=== PATIENT | male | born 1955 | race Caucasian/White ===

== ENCOUNTER 2018-12-21 11:15 | Emergency (ER) | payer BC ==
[~2018-12-21] VITALS: Ht 167.6 cm; Wt 75.0 kg
[2018-12-21 11:38] VITALS: Ht 167.6 cm; Wt 75.0 kg
[2018-12-21] MEDS ORDERED: ATOR40TA68 PO (12:10)
[2018-12-21] MEDS ORDERED: ASPI81TA52 PO (12:10)
[2018-12-21] MEDS ORDERED: OMEG-135 PO (12:10)
[2018-12-21] MEDS ORDERED: CARV25TA79 PO (12:10)
[2018-12-21] MEDS ORDERED: LOSA50TA14 PO ×2 (12:11)
[2018-12-21] MEDS ORDERED: ISOS60TA PO (12:12)
[2018-12-21] MEDS ORDERED: LATA2.5D2 BOTH EYES (12:12)
[2018-12-21] MEDS ORDERED: PANT40TA3 PO (12:13)
[2018-12-21] MEDS ORDERED: METF500T24 PO (12:13)
[2018-12-21] MEDS ORDERED: NITR0.4T39 SL (12:13)
[2018-12-21] MEDS ORDERED: ATRO INHALATION (12:13)
--- NOTE | 2018-12-21 12:17 | ERD ---
ER Documentation Chief Complaint Chief Complaint NON-RADIATING CHEST PAIN. UNPROVOKED. HPI 63-year-old male presents to the emergency department complaining of chest pain. Patient states he was at [facility] over the last 24 hours where he had multiple troponins performed to rule out AR. These were by report negative. He was then discharged and went to [facility]. He had an episode of nonspecific chest discomfort while at [facility]. The pain was nonspecific and in the center part of his chest was not associated with any other symptoms. He took a nitroglycerin which helped the pain get better, but that he then felt lightheaded and passed out briefly. The paramedics were then called. I have reviewed the senior integration developer pre-hospital care. Pre-hospital vital signs were reviewed. Pre-hospital diagnostic tests were reviewed. Upon arrival, patient has no chest pain or shortness of breath, no lightheadedness and feels fine. ROS All systems reviewed and are negative except as per history of present illness. Medications Home Meds Reported Medications Pantoprazole* (Protonix*) 40 Mg Tablet.dr, 40 MG PO DAILY, TAB 12/21/18 Nitroglycerin* (Nitrostat*) 0.4 Mg Tab.subl, 0.4 MG SL Q5MIN PRN for CHEST PAIN, BOTTLE 12/21/18 Metformin Hcl* (Metformin Hcl*) 500 Mg Tablet, 500 MG PO WITH BREAKFAST DINNE, #60 TAB 12/21/18 Ipratropium [place]* (Atrovent HFA*) 12.9 Gm Aer.w.adap, 2 PUFF INHALATION Q6 for SHORTNESS OF BREATH, #1 INHALER 12/21/18 Isosorbide Mononitrate* (Isosorbide Mononitrate*) 60 Mg Tab.er.24h, 60 MG PO DAILY, TAB 12/21/18 Latanoprost (Latanoprost) 2.5 Ml Drops, 1 DROP BOTH EYES QHS, #1 BOTTLE 12/21/18 Losartan Potassium* (Losartan Potassium*) 50 Mg Tablet, 100 MG PO QPM, TAB 12/21/18 Losartan Potassium* (Losartan Potassium*) 50 Mg Tablet, 50 MG PO QAM, TAB 12/21/18 Smith-3 Fatty Acids/Fish Oil (Fish Oil 1,000 mg Capsule) 1 Each Capsule, 1 EACH PO TID, CAP 12/21/18 Carvedilol* (Carvedilol*) 25 Mg Tablet, 25 MG PO BID, #60 TAB 12/21/18 Atorvastatin* (Atorvastatin*) 40 Mg Tablet, 40 MG PO QHS, #30 TAB 12/21/18 Aspirin (Low Dose Aspirin) 81 Mg Tablet.dr, 81 MG PO DAILY, #30 TAB 12/21/18 PMhx/Soc History of Surgery: No Anesthesia Reaction: No Hx Neurological Disorder: No Hx Respiratory Disorders: No Hx Cardiac Disorders: Yes (HTN, HIGH CHOLESTEROL, AR) Hx Psychiatric Problems: No Hx Miscellaneous Medical Probl: Yes (DM) Hx Alcohol Use: No Hx Substance Use: No Hx Tobacco Use: No Smoking Status: Former smoker FmHx Noncontributory for chief complaint Physical Exam Vitals Vital Signs Date Temp Pulse Resp B/P (MAP) Pulse Ox O2 O2 Flow FiO2 Time Delivery Rate 12/21/18 97.8 51 16 140/64 99 11:38 (89) Physical Exam GENERAL: The patient is well developed and appropriate for usual state of health in no apparent distress HEENT: Pupils equal, round, and reactive to light. EOMI. There is no scleral icterus. NECK: C-spine is soft and supple, there is no meningismus. There is no cervical lymphadenopathy. LUNGS: Clear to auscultation bilaterally. There are no rales, wheezes or rhonchi. HEART: Regular rate and rhythm, no murmurs, clicks, rubs or gallops. ABDOMEN: Soft, non-tender, non-distended. There are bowel sounds in all four quadrants. No rebound or guarding. EXTREMITIES: There is no peripheral cyanosis or edema. No focal swelling or erythema. NEURO: The patient moves all four extremities with 5/5 strength. Cranial nerves II - XII are intact. Normal gait. Alert and oriented SKIN: There is no apparent rash or petechiae. HEME/LYMPHATIC: There is no evidence of excessive bruising or lymphedema. PSYCHIATRIC: The patient does not appear anxious or depressed. Result Diagram: 12/21/18 1135 12/21/18 1135 Results 24 hrs Laboratory Tests Test 12/21/18 11:35 White Blood Count 8.0 10^3/ul Red Blood Count 4.87 10^6/ul Hemoglobin 15.6 g/dl Hematocrit 44.7 % Mean Corpuscular Volume 91.8 fl Mean Corpuscular Hemoglobin 32.0 pg Mean Corpuscular Hemoglobin Concent 34.9 g/dl Red Cell Distribution Width 11.9 % Platelet Count 147 10^3/UL Mean Platelet Volume 8.9 fl Immature Granulocytes % 0.400 % Neutrophils % 73.1 % Lymphocytes % 18.1 % Monocytes % 6.9 % Eosinophils % 1.0 % Basophils % 0.5 % Nucleated Red Blood Cells % 0.0 /100WBC Immature Granulocytes # 0.030 10^3/ul Neutrophils # 5.8 10^3/ul Lymphocytes # 1.4 10^3/ul Monocytes # 0.6 10^3/ul Eosinophils # 0.1 10^3/ul Basophils # 0.0 10^3/ul Nucleated Red Blood Cells # 0.0 10^3/ul Sodium Level 141 mmol/L Potassium Level 4.0 mmol/L Chloride Level 102 mmol/L Carbon Dioxide Level 30 mmol/L Anion Gap 9 Blood Urea Nitrogen 22 mg/dl Creatinine 1.22 mg/dl Est Glomerular Filtrat Rate mL/min 60 mL/min Glucose Level 128 mg/dl Calcium Level 9.8 mg/dl Troponin I < 0.012 ng/ml Procedures/MDM Patient was taken to a room, seen and evaluated. Comfort measures were initiated. Diagnostic tests were ordered and reviewed. 3 LEAD RHYTHM STRIP: Normal sinus rhythm without ectopy Senior Database Engineer EK lead EKG reviewed by myself: Normal Sinus Rhythm Normal [place] and intervals No ST elevation, depression, or T wave inversion Impression: Normal EKG EKG interpreted by myself upon arrival: Rate/rhythm: Normal sinus rhythm no ectopy [place]/intervals: Normal Ischemia: No ST elevation, ST depression, T wave inversion Impression: Nonischemic EKG RADIOLOGY: Reviewed with the radiologist REEVALUATION: Patient has remained comfortable. Diagnostic tests were a ppreciated discussed with the patient. He felt comfortable following up as an outpatient did not wish to stay for further observation.[id number] [employer]-year-old male presents the emergency department after a brief syncopal episode likely related to taking his nitroglycerin. This is not appear to be cardiac related. His EKGs are normal, his troponin is reassuring, he was just ruled out for myocardial infarction last night. While he does have a history of underlying heart disease, there is no indications of arrhythmia and he feels fine. Overall, the patient does not wish to stay for further observation, having just completed this yesterday, he now appears appropriate for outpatient care. He does tell me he has a follow-up appointment with his doctor at [facility] tomorrow. Departure Diagnosis: Primary Impression: Chest pain Condition: Stable Patient Instructions: Chest Pain, Uncertain Cause Additional Instructions: Please follow-up with your doctor at [facility] tomorrow as scheduled. PERLITA HUI Dec 21, 2018 12:17
[2018-12-21 12:24] VITALS: BP 138/80; PULSE 89; RESP 16
== END 2018-12-21 12:26 | disposition home or self-care (01) ==
LOC: E/R 11:15
DX: R07.9 Chest pain, unspecified (principal); E11.9 Type 2 diabetes mellitus without complications; I25.2 Old myocardial infarction; I10 Essential (primary) hypertension; Z79.82 Long term (current) use of aspirin; Z79.84 Long term (current) use of oral hypoglycemic drugs; Z87.891 Personal history of nicotine dependence
CPT/HCPCS: 36415; 71045; 80048; 84484; 85025; 93005